=== PATIENT | female | born 1980 | race Caucasian/White ===

== ENCOUNTER 2017-06-25 23:08 | Inpatient (IN) ==
[2017-06-25] MEDS ORDERED: LR 1,000 ML IV SCH (23:45)
[2017-06-26] MEDS ORDERED: MORPHINE SULFATE 4mg INJECTION IVP ONE (00:04)
[2017-06-26] MEDS: SALINE FLUSH 10ml SYRINGE IVF PRN ×2 (00:10→02:26)
[2017-06-26] MEDS ORDERED: MORPHINE SULFATE 2mg INJ IVP ONE (00:40)
[2017-06-26] MEDS ORDERED: ONDANSETRON 4 MG/2 ML INJECTION IVP ONE (00:40)
[2017-06-26] MEDS ORDERED: SALINE FLUSH 10ml SYRINGE ONE ×2 (00:47→02:43)
[2017-06-26] MEDS ORDERED: IOHEXOL 300mg/ml 100ml INJECTION ONE (00:47)
--- OUTSIDE RECORDS SUMMARY | 2017-06-26 00:55 | External Medical Summary | Continuity of Care Document ---
:1980 Author Organization Allergies There is no data. Medications There is no data. Problems There is no data. Procedures There is no data. Results Test Result Range L100.0050 - 06/25/17 23:33 WBC - WHITE BLOOD COUNT 13.4 T/MM3 4.5-11.0 RED BLOOD COUNT 4.45 M/MM3 4.00-5.20 HGB - HEMOGLOBIN 14.2 GM/DL 12-16 HCT - HEMATOCRIT 40.7 % 36-46 MEAN CORPUSCULAR VOLUME 91.5 UM3 80-100 MEAN CORPUSCULAR HGB 31.9 UUG 26-34 MEAN CORPUSCULAR HGB CONC(MCHC 34.9 GM/DL 31-37 RDW STANDARD DEVIATION 39.9 FL 36.9-50.2 PLT - PLATELET COUNT 248 T/MM3 130-400 MEAN PLATELET VOLUME 9.2 UM3 9.4-12.4 NEUTROPHILS % (AUTO) 74.5 % 33-66 LYMPHOCYTES % (AUTO) 20.3 % 23-45 MONOCYTES % (AUTO) 4.3 % 0-9.0 EOSINOPHILS % (AUTO) 0.6 % 0-4 BASOPHILS % (AUTO) 0.1 % 0-2 IMMATURE GRANULOCYTE % (AUTO) 0.2 % 0.0-0.5 NEUTROPHILS # (AUTO) 10.0 T/MM3 1.8-7.7 LYMPHOCYTES # (AUTO) 2.7 T/MM3 1-4.8 MONOCYTES # (AUTO) 0.6 T/MM3 0-0.8 EOSINOPHILS # (AUTO) 0.1 T/MM3 0-0.5 BASOPHILS # (AUTO) 0.0 T/MM3 0-0.2 IMMATURE GRANULOCYTE # (AUTO) 0.03 T/MM3 0.00-0.03 L600.0100 - 06/25/17 23:33 POTASSIUM Urine, Void-CC/notCC NRG CHLORIDE YELLOW YELLOW ANION GAP CLEAR NRG BLOOD UREA NITROGEN 8.0 5.0-8.0 BUN/CREATININE RATIO NEGATIVE NEGATIVE GLUCOSE NEGATIVE NEGATIVE CALCIUM 2+ NEGATIVE BILIRUBIN, CONJUG & NEGATIVE NEGATIVE UNCONJUG Specific [place],Urine 1.025 1.015-1.025 Leukocyte Esterase,Urine NEGATIVE NEGATIVE Nitrate,Urine NEGATIVE NEGATIVE Urobilinogen,Urine 1.0 EU/DL NORMAL Occult Blood,Urine - Dipstick NEGATIVE NEGATIVE Urine Microscopic (UA) Microscopic Not Ind. NRG [id number] - 06/25/17 23:33 Test Result, Urine Negative Negative L200.0020 - 06/25/17 23:33 FUNGAL CULTURE. 0.6 mg/dL 0.7-1.2 FUNGAL CULTURE, BLOOD. 22 RATIO 6-26 NA - Sodium 147 MEQ/L 134-144 Potassium 2.8 MEQ/L 3.6-5 Chloride 106 MEQ/L 98-107 CO2 - Carbon Dioxide 24 MEQ/L 22-30 Anion Gap 17 meq/L 5-15 BUN - Blood Urea Nitrogen 13.0 MG/DL 7-17 Glomerular Filtration Rate 112 NRG Glucose 127 MG/DL 65-110 Osmolality,Calculated 284 MOSM/KG 261-280 Calcium 9.6 MG/DL 8.4-10.2 Bilirubin,Total 0.70 MG/DL 0.20-1.30 Alkaline Phosphatase 71 U/L 38-126 AST - Aspartate Amino Transfer 27 U/L 14-36 TP - Total Protein 7.6 g/dL 6.3-8.2 Albumin Level 4.8 g/dL 3.5-5.0 Globulin 2.8 G/DL 2.4-3.6 Albumin/Globulin Ratio 1.7 RATIO 1.1-2.2 LICTERUS < 2 0-7 LHEMOLYSIS < 15 0-25 LTURBIDITY < 20 0-20 LALTV 12 U/L 1-35 B100.0700 - 06/25/17 23:33 BLOOD TYPE A Positive NRG ANTIBODY SCREEN NEGATIVE NRG B110.1099 - 06/25/17 23:33 BBT5 A Positive NRG Encounters ACCT Visit Discharge Status Pt. Type Provider Facility Loc./Unit Complaint No. Date/Time [id number] 10/26/2014 10/26/[address] [facility] [id number] 14:46:00 23:59:59 [facility] [id number] 06/25/2017 Document [id number] 23:42:00 Registration
[2017-06-26] MEDS ORDERED: FentaNYL 100 MCG/2 ML INJECTION IVP ONE ×3 (01:24→02:14)
[2017-06-26] MEDS ORDERED: POTASSIUM CHLORIDE INJ 20 MEQ in LR 1,000 ML IV SCH (01:30)
[2017-06-26] MEDS ORDERED: HYDROMORPHONE 2 MG/ML INJECTION IVP ONE (02:03)
--- NOTE | 2017-06-26 02:35 | Anesthesia Preoperative Report ---
Anesthesia Preoperative Record - Date and Time Date: 06/26/17 Preoperative Diagnosis: Left lower quadrant pain, adnexal mass NPO Since Date: 06/25/17 NPO Since Time: 19:30 Allergies/Adverse Reactions: Allergies Allergy/AdvReac Type Severity Reaction Status Date / Time No Known Allergies Allergy Verified 06/26/17 00:31 - Vital Signs Vital Signs: Temperature 97.6 F 06/25/17 23:35 Pulse Rate 92 06/26/17 00:13 Respiratory Rate 18 06/26/17 02:24 Blood Pressure 131/78 06/26/17 00:13 Pulse Oximetry 100 06/26/17 00:13 - Medications Inpatient Medications: Current Medications Potassium Chloride 20 meq/ (Lactated Ringer's) 1,010 mls @ 150 mls/hr IV .[id number] SEYMOUR Last Admin: 06/26/17 01:46 Dose: 150 mls/hr Potassium Chloride (Potassium Chloride Premix) 10 meq in 100 mls @ 100 mls/hr IV Q1H [facility]YM[facility] Stop: 06/26/17 05:30 Sodium Chloride (Iv Flush) 10 - 80 ml IVF PRN PRN PRN Reason: Flushing Last Admin: 06/26/17 02:26 Dose: 20 ml Home Medications: Home Medications Medication Instructions Recorded Confirmed Type No known Home medications [No home 06/26/17 06/26/17 History meds] Is Patient on Beta Alvaro?: No - Medical History Gastrointestional: Reports: Nausea or Vomiting Present, Morbid Obesity (obesity with BMI 31) - Surgical History GI Surgery/Treatments: Reports: Cholecystectomy Reproductive Surgery/Treatment: Reports: Section (x3) Anesthesia Reactions: None Hx Family Anesthesia Reaction: No History of Motion Sickness: No - Social History Smoking Status: Never smoker Hx Chewing Tobacco Use: No Second Hand Exposure: No Substance Use Type: does not use Alcohol Intake Frequency: does not drink - Physical Exam Respiratory Exam: Present: lungs clear, bilateral breath sounds equal Cardiovascular Exam: Present: regular rate and rhythm - Airway Assessment Mallampati Score: II TMD: 3 Fingerbreadths Neck Extension: good Overall Assessment: no airway concerns - ASA ASA Score: 2, E - Plan Anesthesia: General Inhalation Gases Regional/Trunk Block: Transverse Abdominal Plane - Discussion Discussion: Discussed risks/options/alternatives of anesthesia and questions answered. Patient consents. Nursing pain assessment noted. Present for Discussion: family member Attestation Statement: Prior to the delivery of any anesthetic medication, I examined the patient, developed the plan, obtained the patient's consent and discussed the risk and benefits of the procedure with the patient/guardian. - Additional Information Seen by Anesthesia: Yes
[2017-06-26] MEDS ORDERED: SUFentanil 50mcg/ml INJECTION ONE (02:42)
[2017-06-26] MEDS ORDERED: MIDAZOLAM 2mg/2ml INJECTION ONE (02:42)
[2017-06-26] MEDS ORDERED: ROCURONIUM 50 MG/5 ML INJECTION IVP ONE (02:45)
[2017-06-26] MEDS ORDERED: PROPOFOL 20 ML ONE (02:45)
[2017-06-26] MEDS ORDERED: SUCCINYLCHOLINE 20mg/mL 10mL INJECTION ONE (02:45)
[2017-06-26] MEDS ORDERED: DEXAMETHASONE 4 MG/ML INJECTION ONE (02:47)
[2017-06-26] MEDS: POTASSIUM CHLORIDE PREMIX 10 MEQ/100 ML BAG IV SCH ×3 (03:00→13:46)
[2017-06-26] MEDS ORDERED: SUGAMMADEX 200mg/2ml INJECTION IVP ONE (03:58)
[2017-06-26] MEDS ORDERED: HYDROMORPHONE 2 MG/ML INJECTION IVP PRN (04:06)
[2017-06-26] MEDS ORDERED: ONDANSETRON 4 MG/2 ML INJECTION IVP PRN (04:06)
[2017-06-26] MEDS ORDERED: METOCLOPRAMIDE 10mg/2ml INJECTION IVP PRN (04:06)
[2017-06-26] MEDS ORDERED: CEFOXITIN 2 GM in NS 100 ML IV ONE (04:14)
[2017-06-26] MEDS ORDERED: BUPIVACAINE 0.25% (2.5mg/ml) PF 30ml INJECTION ONE (04:34)
--- NOTE | 2017-06-26 04:39 | OB/GYN Procedure Note ---
Operative Note Date of Surgery: 06/26/17 Preoperative Diagnosis: R ovarian complex mass, acute abd pain, likely ovarian torsion Postoperative Diagnosis: L ovarian complex mass, acute abd pain, ovarian torsion x4 twists Procedure: Exploratory Laparotomy, LSO Surgeon:Hayder Isaac MD Cereal Chemist: Kenton Velez DO EBL: 100cc Anesthesia: GET by xiang Smalls CRNA Complications: What was thought to be a R ovarian complex cyst was actually on the left.
[2017-06-26] MEDS ORDERED: MORPHINE PCA 30 MG/30 ML SYRINGE IV PRN (04:46)
[2017-06-26] MEDS ORDERED: LR 1,000 ML IV SCH (05:00)
[2017-06-26] MEDS ORDERED: BUPIVACAINE 0.25% (2.5mg/ml) PF 30ml INJECTION ID ONE (05:00)
--- NOTE | 2017-06-26 05:07 | Anesthesia Postoperative Note ---
- Date and Time Date: 06/26/17 Time: 05:06 - Status Patient Participated in Evaluation: Patient Participated in Person Vital Signs: Temperature 99.0 F 06/26/17 04:43 Pulse Rate 103 H 06/26/17 05:00 Respiratory Rate 12 06/26/17 05:00 Blood Pressure 136/70 06/26/17 05:00 Pulse Oximetry 92 06/26/17 05:00 Respiratory Function: Airway Patent, Regular Respirations Cardiovascular Function: Regular Pulse Mental Status: Alert and Oriented Pain Intensity: 3 Hydration: IV Infusing Complications During Recover: None Apparent - Follow-Up Instructions Instructions: Per Surgeon
[2017-06-26] MEDS ORDERED: Oxycodone/Acetaminophen 5/325 1 TAB PO PRN (05:26)
[2017-06-26 05:40] VITALS: BMI 32.1
--- NOTE | 2017-06-26 08:01 | CT Scan Report ---
Indication: L side acute pain PROCEDURE: CT abdomen pelvis w con: Encounter: Initial Comparison: None Technique: Axial CT images were performed through the abdomen and pelvis after the administration of intravenous contrast. Coronal and sagittal two-dimensional reformats. Automated Exposure Control and Iterative Reconstruction dose reducing techniques were utilized. Contrast: Omnipaque 300 88 mL Findings: The lung bases are clear. The liver is unremarkable. Mild bile duct dilatation. Gallbladder is surgically absent. The spleen, pancreas and adrenal glands are normal. Kidneys are normal. No abdominal or pelvic lymphadenopathy. Intrauterine device noted within the uterus. Large multiloculated cyst that could be arising from either ovary but is centered more on the right side of the pelvis measuring 10.5 x 8.3 x 2.1 cm in diameter. No free fluid or free air. No evidence of a bowel obstruction. The appendix is normal. Bone windows show no acute findings. Impression: Large multiloculated cystic lesion in the pelvis probably arising from an ovary. Findings could represent a cystic benign or malignant ovarian neoplasm, complex cyst or torsed ovary. Recommend pelvic ultrasound for further evaluation. There is a preliminary report by [employer]. .
--- NOTE | 2017-06-26 08:14 | Operative Note ---
DATE OF PROCEDURE: 06/26/2017 PREOPERATIVE DIAGNOSIS: 37-year-old white female, G3, P3, with right ovarian complex cyst 10 cm in size, acute abdominal pain, suspected ovarian torsion. POSTOPERATIVE DIAGNOSIS: Left complex ovarian cyst, left ovarian torsion x 4 twists. PROCEDURE: Exploratory laparotomy and left salpingo-oophorectomy. EBL: 100 mL SURGEON: Hayder Isaac MD DIRECTOR OF REGIONAL SALES: Kenton Velez MD ANESTHESIA: General endotracheal by Sushil Smalls CRNA. COMPLICATIONS: What was suspected to be a right ovarian complex cyst was actually the left side. DESCRIPTION OF PROCEDURE The patient was seen and evaluated in the ER and eventually consented for surgery. After adequate general anesthesia and intubation, the patient was given 2 g of Mefoxin. The abdomen was soft after intubation and the cyst could be felt and was freely mobile & extending 2-3 cm above the umbilicus. A midline skin incision was made from the left side of the umbilicus down to the suprapubic area and it was carried down to the fascia which was incised vertically with Shelton scissors and a scalpel. Then I found midline and dissected down to the peritoneum and opened it up and there was bloody peritoneal fluid noted upon entering. We immediately identified the offending ovary and then we elevated it out of the incision and then put an [place] retractor over the top of it and placed the retractor and then the bladder blade and then used three lap sponges to pack away the abdomen. It was then clear that the complex ovarian cyst and torsion was on the left side instead of the right side as originally expected. The ovary was rotated four times to untwist if and then it was still elevated out of the incision. Right tube and ovary appeared normal. The appendix was seen on the right side and was normal. The left ovary was enlarged and black in appearance and had the appearance of multiple hemorrhagic cysts. We then began dissecting the ovary and tube free from the uterus on the left side. I identified windows in the mesosalpinx and created the windows and then doubly clamped with Omkar clamps and then tied off with a free tie of 2-0 chromic followed by a Omkar stitch of 2-0 Vicryl. This was done in a serial fashion hugging the ovaries until the left ovary and tube were removed. ureter was identified and we were well away from the ureter. Hemostasis was confirmed. Then we irrigated the abdomen. There were some blood clots in the pouch of Rich that were removed. Once things were clean, then the uterus appeared normal (without the left tube or ovary) and the right tube and ovary appeared normal. Then the surgery being completed, we removed the sponges and the retractor and we began closure. Peritoneum was closed using 2-0 Vicryl in a running nonlocking fashion. Fascia was closed using an 0-PDS from superior to inferior and from inferior to superior meeting in the middle of the incision. Then 2-0 plain gut was used to approximate the space and then several simple interrupted 3-0 Vicryls were used to pull the skin edges together and then samra were used in a serial fashion to close the incision and then some horizontal mattress sutures of 3-0 Monocryl were used to keep the skin edges everted. The patient went to the recovery room in stable condition. ZEV
--- NOTE | 2017-06-26 08:42 | Emergency Room Note ---
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 He called me this evening reporting that he believed his was having ovarian torsion with a surgical abdomen. This occurred about 2212 hours. The patient came to the [facility] ER and I met her there. The chief complaint is left-sided pain and left lower quadrant pain that's stabbing in nature began about 2100 and she had a lot of emesis as well. The pain is " worse than a kidney stone and radiates to her back". It is better with standing and the pain is constant. It does not come and go. It is worse with sitting and lying on her side. She had a SURVEY OPERATIONS DIRECTOR sono three weeks ago which showed a 7 cm complex multiloculated right ovarian cyst. Left ovary was seen and normal. The right ovary was displaced to the midline. On exam the right side of her abdomen is soft and nontender, but about mid side on left side well above her pelvis is where her main tenderness it is. It radiates towards her back. She doesn't have CVA tenderness per se. She is afebrile. Temperature is 97.6. Pulse is 70. Respirations are 20. Blood pressure is 126/58. PAST SURGICAL HISTORY: x 3 with lots of scar tissue, laparoscopic ovarian cystectomy, laparoscopic gallbladder. PAST MEDICAL HISTORY: History of kidney stones. MEDICATIONS: Mirena IUD and Advil and Percocet this evening at 2130 which she vomited up. ALLERGIES: No known drug allergies. Pelvic exam is deferred at this point in time because Dr. Mirza did one at home and felt like the ovary was tender. We started an IV and we got some lab work. Her white count was 13.4 and her hemoglobin was 14.7 with normal platelets at 248. Chemistry showed creatinine 0.6 and later the potassium returned low at 2.8. Sodium was 147. test is negative by urine. Urine is negative except 2+ ketones. The patient thinks she is dehydrated and it appears to be the case with the 2+ ketones, so we will try to hydrate her with LR. Pain is acute but higher than I would expect for an ovarian torsion. Dr. Mirza was concerned that the right ovary had crossed over to the left and had torsed but, given her history of adhesions, that seems less likely. She had some diarrhea after the pain came on, so it is possible it is a diverticulitis but the acute 11/20 pain doesn 't really fit with that. Remote possibility would be something like an aneurysm or a bowel obstruction or ischemic bowel. I did talk to Dr. Segal on the phone. I had an operating room and crew on standby. Dr. Segal recommended imaging and more evaluation before rushing into surgery. He would recommend starting with abdominal and pelvic CT with IV contrast only. We may do a sono also depending on the findings from the CT. In the meantime, will give her some IV morphine to try to help her pain. At this point in time the CT is pending and the patient is still in the Emergency Room. Questions have been answered to the patient and her 's satisfaction to the best of my ability at this point in time. ZEV
[2017-06-26] MEDS: SIMETHICONE 80 MG CHEWABLE TABLET PO SCH ×4 (09:42→20:58)
[2017-06-26] MEDS: DOCUSATE CALCIUM 240 MG CAPSULE PO SCH (09:43)
[2017-06-26] MEDS: IBUPROFEN 800 MG TABLET PO PRN ×2 (09:43→17:34)
[2017-06-27 05:45] VITALS: RESP 16
[2017-06-27] MEDS: IBUPROFEN 800 MG TABLET PO PRN (07:20)
[2017-06-27 07:30] VITALS: BP 104/59; PULSE 70; O2SAT 98
[2017-06-27 07:50] VITALS: TEMP 97.2
--- NOTE | 2017-06-27 08:09 | OB/GYN Procedure Note ---
GAME DESIGNER Postop Note Free Text - Date Date: 06/27/17 - Progress Note Progress Note: saw pt last night and again this am doing well charan reg diet pain controlled with ibuprofen incision c/d/i f/u 1 wk for samra. instructions reviewed q&a-krb
[2017-06-27] MEDS: DOCUSATE CALCIUM 240 MG CAPSULE PO SCH (08:21)
[2017-06-27] MEDS: SIMETHICONE 80 MG CHEWABLE TABLET PO SCH ×2 (08:21→08:33)
== END 2017-06-27 11:15 | disposition home or self-care (01) | DRG 743 ==
LOC: ED 23:08 → EDHOLD 23:08 → SRG 06-26 02:51
PROVIDERS: ADMIT Obstetrics & Gynecology; ATTEND Obstetrics & Gynecology